=== PATIENT | female | born 1945 | race Caucasian/White ===

== ENCOUNTER 2019-05-12 23:38 | Inpatient (IN) ==
[2019-05-13 00:27] LABS: HEMATOCRIT 34.5 % (37.0-47.0); HEMOGLOBIN 10.9 g/dL (12.0-16.0); MCH 26.5 PG (27-31); MCHC 31.6 g/dL (33-37); MCV 83.9 FL (81-99); MPV 10.7 FL (7.4-10.4); PLT 307 X1000 (130-400); RBC 4.11 XMIL (4.2-5.4); RDW 13.9 % (11.5-14.5); WBC 7.59 X1000 (4.8-10.8)
[2019-05-13 00:28] LABS: BASO# 0.03 X1000 (0.0-0.2); BASO% 0.4 % (0.0-0.8); EOS# 0.26 X1000 (0.0-0.7); EOS% 3.4 % (0.0-10.0); IMM GRAN# 0.07 X1000 (0.0-0.04); IMM GRAN% 0.9 % (0.0-0.5); LYMPH# 1.82 X1000 (1.2-3.4); MONO# 1.49 X1000 (0.11-0.59); MONO% 19.6 % (1.7-9.3); NEUT# 3.92 X1000 (1.4-6.5); NEUT% 51.7 % (42.2-75.2)
--- NOTE | 2019-05-13 00:49 | PROVIDER DOCUMENTATION ---
This chart was entered by Sarah Hurley Scribe, acting as scribe for Mariana Cat MD. HPI-Abdominal Pain/GI Problem - General Chief Complaint: Diarrhea Stated Complaint: abd pain Time Seen by Provider: 05/12/19 23:50 Source: patient, EMS Allergies/Adverse Reactions: Patient Allergies Allergy/AdvReac Type Severity Reaction Status Date / Time Penicillins Allergy Severe RASH Verified 04/30/19 10:38 Sulfa (Sulfonamide Allergy Severe RASH Verified 04/30/19 10:38 Antibiotics) cephalexin [Cephalexin] Allergy Unknown Verified 04/30/19 10:38 levofloxacin [From Levaquin] Allergy Unknown Verified 04/30/19 10:38 seasonal Allergy Intermediate RUNNY NOSE Uncoded 04/30/19 10:38 Home Medications: Home Medication List Medication Instructions Recorded Confirmed Last Taken Type Divalproex Sodium 750 mg PO QHS 10/13/12 04/25/19 10/14/12 06:15 History Doxepin [Sinequan] 100 mg PO HS 10/13/12 04/25/19 10/13/12 23:30 History Aspirin 81 mg PO QHS 04/25/19 04/25/19 Unknown History Buspirone HCl 7.5 mg PO TID 04/25/19 04/25/19 Unknown History Cholecalciferol (Vitamin D3) 1,000 unit PO QHS 04/25/19 04/25/19 Unknown History [Vitamin D3] Clonazepam 0.5 mg PO TID 04/25/19 04/25/19 Unknown History Cyanocobalamin (Vitamin B-12) 1,000 mcg PO QHS 04/25/19 04/25/19 Unknown History [Vitamin B12] Duloxetine HCl 30 mg PO DAILY 04/25/19 04/25/19 Unknown History Rotigotine [Neupro] 2 ea TD DAILY 04/25/19 04/25/19 Unknown History Levothyroxine Sodium [Synthroid] 100 mcg PO DAILY #30 tab 04/26/19 Unknown Rx Hydrocodone/APAP 5 mg/325 mg 1 ea PO Q6H PRN PRN #20 tab 05/03/19 Unknown Rx [[place]-5] - History of Present Illness-ABD Nature of Presenting Problems: 73yof presents to ED by EMS cc 2 episodes of diarrhea today. Pt is scheduled to have surgery on her left ankle that is fracture in 2 days and just wanted to make sure Dr. Marie would still do it wiht her having diarrhea. Pt is a poor historian. Pt is nontoxic in appearance. Review of Systems - Adult - REVIEW OF SYSTEMS - ADULT Constitutional: reports: see HPI. denies: chills, fever, fatique Eyes: reports: no symptoms reported Ears, Nose, Mouth & Throat: reports: no symptoms reported Cardiovascular: reports: see HPI. denies: chest pain Respiratory: reports: see HPI. denies: cough, shortness of breath Gastrointestinal: reports: see HPI, diarrhea. denies: abdominal pain, nausea, vomiting Genitourinary: reports: no symptoms reported Musculoskeletal: reports: no symptoms reported Integumentary: reports: no symptoms reported Neurological: reports: no symptoms reported Psychiatric: reports: no symptoms reported Endocrine: reports: no symptoms reported Hematologic/Lymphatic: reports: no symptoms reported Allergic/Immunologic: reports: no symptoms reported All Other Systems: Reviewed and Negative Past History - Adult - PAST MEDICAL HISTORY-ADULT Review of Records: reports: Nursing Assessment Review, Medications Reviewed, Social history reviewed & non-contributory. Major Childhood Illnesses: reports: denies history Cardiovascular: reports: denies history Respiratory: reports: sleep apnea Gastrointestinal: reports: denies history Obstetrical/Gynecological: reports: denies history Genitourinary: reports: denies history Musculoskeletal: reports: denies history Neurological: reports: Parkinson's Endocrine/Immune: reports: thyroid disorder (hypo) Other Conditions: reports: denies history - PRIOR SURGERIES/PROCEDURES Surgical/Procedure History: reports: hysterectomy - IMMUNIZATION STATUS Childhood Immunizations: See Nurse Assessment Flu Vaccine: See Nurse Assessment - FAMILY HISTORY Family History: reviewed, not pertinent Physical Exam-General - PHYSICAL EXAM-ADULT Initial Vital Signs Reviewed: Yes - CONSTITUTIONAL General Appearance: appears well, alert, no apparent distress. negative: anxious, combative - EYES Eyes: PERRL/EOMI, pink conjunctivae. negative: meningismus, pale conjunctivae, photophobia - HEAD, EARS, NOSE, MOUTH & THROAT HENMT: normocephalic/atraumatic, moist mucous membranes, normal ENT inspection. negative: angioedema - NECK Neck: non-tender, full range of motion, supple, normal inspection. negative: C- spine tenderness - RESPIRATORY Respiratory: chest non-tender, lungs clear, normal breath sounds, no pleuratic chest pain, no respiratory distress, no accessory muscle use. negative: crackles, rales, rhonchi, stridor, wheezing - CARDIOVASCULAR Cardiovascular: normal peripheral pulses, regular rate, rhythm, no edema, no gallop, no JVD, no murmur. negative: bradycardia, tachycardia - GASTROINTESTINAL (ABDOMEN) Abdominal Exam: normal bowel sounds, non tender, soft, no organomegaly, no pulsatile mass. negative: distended, guarding, rigid, rebound, tenderness, hernia, mass - MUSCULOSKELETAL Extremity: deformity (cast on left lower leg/ankle/foot from a previous fractur e) - SKIN Integumentary: normal color, normal turgor, warm/dry. negative: cyanosis, diaphoresis, ecchymosis, jaundice, rash - NEUROLOGIC Neurologic: environmental officer II-XII nml as tested, grossly normal, no motor/sensory deficits. negative: facial droop, focal weakness, motor weakness, sensory deficit - PSYCHIATRIC Psych/Mental Status: normal mood/affect, normal thought content, normal thought process, oriented x 3. negative: disoriented x 3, anxious, disheveled, depressed affect Progress - PLAN OF CARE/RESULTS Progress/Plan/Lab Results: Vital Signs - 8 hr 05/13/19 00:00 Temperature 97.9 F Pulse Rate 81 Respiratory Rate 20 Blood Pressure 118/60 O2 Sat by Pulse Oximetry 97 Result Diagrams: 05/12/19 23:55 05/12/19 23:55 - CONSULTS/PCP/HOSPITALIST Notification #1 *Consult/PCP/Hospitalist*: Dr. Glass Time Discussed: 01:33 Consult Disposition: Will see in ED Departure - Departure Date of Disposition Decision: 05/13/19 Time of Disposition Decision: 01:30 DIAGNOSIS: Diarrhea, Altered mental status Disposition: ADMITTED INPATIENT 09 Certified Medical Emergency: Emergent Condition: Stable - Critical Care Note This patient required my direct & personal management of CC.: No Attestation - Physician/ SILVERIO Attestation Patient care was provided by Advanced Practice Provider:: No The physician spent face to face time with patient:: Yes Advanced Practice Provider documentation review:: Supervising physician onsite and consulted in the evaluation and care of this patient. The physician did have a face to face encounter with the patient. This chart was documented by the indicated jorgeibsteve, (Sarah Hurley, Scribe) and accurately reflects the services I performed and decisions made by me, Mariana Cat MD, as attested by the provider's signature.
[2019-05-13 01:21] LABS: ESTIMATED GFR > 60
[2019-05-13 01:24] LABS: AGAP 14; ALBUMIN 2.9 g/dL (3.5-5.0); ALKALINE PHOSPHATASE 64 U/L (32-104); AMYLASE 12 U/L (20-200); BUN 13 mg/dL (8-22); CALCIUM 8.6 mg/dL (8.8-10.2); CHLORIDE 102 mmol/L (98-107); COSMO 282; CREATININE 0.8 mg/dL (0.5-0.9); GLUCOSE 174 mg/dL (70-104); GOT 20 U/L (10-30); GPT 11 U/L (10-36); LIPASE 7 U/L (13-60); POTASSIUM 3.4 mmol/L (3.5-5.1); SODIUM 139 mmol/L (136-145); TCO2 23 mmol/L (25-35); TOTAL BILIRUBIN 0.19 mg/dL (0.20-1.00); TOTAL PROTEIN 5.8 g/dL (6.3-8.3)
[2019-05-13] MEDS ORDERED: ZOFRAN IV PRN (02:44)
[2019-05-13] MEDS: NS 1,000 ML IV SCH ×2 (04:14→16:21)
[2019-05-13] MEDS ORDERED: KLOR-CON PO ONE (06:20)
--- NOTE | 2019-05-13 07:35 | Diag Imaging Result Doc PS360 ---
EXAM: CHEST-PORTABLE 05/13/2019 HISTORY: AMS TECHNIQUE: AP portable at 1237 COMMENT: There is elevation of the left hemidiaphragm. There is some platelike opacity in the left base over the diaphragm and mild volume loss is present in the right upper lobe. These findings were also present on 04/24/2019 and are presumably chronic. IMPRESSION: Stable chest. Electronically signed by Ezequile Lauren 05/13/2019 7:32 AM
--- NOTE | 2019-05-13 08:04 | HISTORY AND PHYSICAL ---
CHIEF COMPLAINT: Diarrhea. HISTORY OF PRESENT ILLNESS: Ms. Elizondo is a 73-year-old female who came into the emergency room because she had 2 bouts of diarrhea. She is supposed to have surgery on her left lower extremity and she came into the emergency room wanting to make sure that Dr. Marie would still do the surgery with her having diarrhea. She will be admitted on Observation status for further evaluation. PAST MEDICAL HISTORY: 1. Falls. 2. Sleep apnea. 3. Parkinson's. 4. Hypothyroidism. 5. Recent fracture of left ankle. PREVIOUS SURGICAL HISTORY: Hysterectomy. FAMILY HISTORY: Positive for Parkinson's disease. SOCIAL HISTORY: No tobacco, occasional alcohol, no drugs. Lives alone. ALLERGIES: Penicillin, sulfa, Keflex, Levaquin. She also has seasonal allergies. HOME MEDICATIONS: List has not been reconciled. Order was placed for nursing to reconcile home medications. The patient was somewhat lethargic. They will call the pharmacy this morning. These can be restarted when appropriate. REVIEW OF SYSTEMS: Fourteen point review of systems conducted with the patient. Pertinent positives listed above in HPI. All other systems reviewed and found to be negative. PHYSICAL EXAMINATION: VITAL SIGNS: Temp 97.9 degrees, pulse 81, respirations 20, blood pressure 118/60, oxygen saturation 97% on room air. GENERAL: 73-year-old female somewhat lethargic. She is alert and oriented. Answers questions but then falls back asleep. HEENT: Head is atraumatic, normocephalic. Pupils equal, round and react to light. Extraocular eye movements intact. Sclerae anicteric. Conjunctivae pink. Oral mucosa is moist. NECK: Supple. No JVD. No thyromegaly. Trachea is midline. No cervical lymphadenopathy. CARDIAC: S1, S2 appreciated. No murmurs, gallops, rubs. LUNGS: Clear to auscultation bilaterally. No rhonchi, wheezes, rales. Symmetric rise and fall of respirations. ABDOMEN: Soft, nondistended, nontender. Bowel sounds present in all 4 quadrants. Normoactive. No pulsatile mass. No organomegaly. EXTREMITIES: 1+ pitting edema right lower extremity. Left lower extremity is in a cast. 1+ pedal pulse in right lower extremity. NEUROLOGICAL: Lethargic but oriented x3. No focal motor deficits. Otherwise nonfocal examination. DIAGNOSTIC DATA: Chest x-ray, no infiltrates or effusions. LABORATORY DATA: WBC 7.59, Hemoglobin 10.9, hematocrit 35.4, platelet count 307,000. Sodium 139, potassium 3.4, chloride 102, carbon dioxide 23, BUN 13, creatinine 0.8, glucose 174. ASSESSMENT AND PLAN: 1. Diarrhea with mild weakness. We will give fluids at 75 mL an hour. Check stool studies. 2. Parkinson's, aware. We will continue home medications when reconciled. 3. Hypothyroidism. Check TSH level. Continue Synthroid when dosing is available. 4. Hypokalemia. We will give potassium and recheck. 5. Hyperglycemia. Check hemoglobin A1c. As far as I know, she does not have diabetes mellitus. Further recommendations based on patient's clinical course. Dictated by DANA Alas for Reza Glass MD I have performed a face to face diagnostic evaluation. Labs/ xrays- reviewed. Exam- Chest- clear, CV-regular, Abd- soft. A/P- Diarrhea- Admit, supportive care, stool studies. Dr. Glass cc: DANA Alsa MD Diana Wilhite, [facility]
--- NOTE | 2019-05-13 17:52 | PROGRESS NOTE ---
DATE: 05/13/2019 SUBJECTIVE: Today Ms. Elizondo refers to be doing a little better. I understand they brought her because she was having a lot of diarrhea. Ms. Elizondo seems to have some baseline dementia. She is not able to give a very articulate story. OBJECTIVE: Vital signs: Blood pressure is 137/45, pulse of 80, respirations 19, temperature is 98.0 degrees. Patient is saturating 97% on room air. General: Ms. Elizondo is a 73-year-old female. She is in bed. No distress. HEENT: Mucosa is pink and moist. Anicteric. Acyanotic. Neck: Supple. Chest: Clear to auscultation. Cardiovascular: Regular rate and rhythm. Abdomen: Soft. Minimally distended. Extremities: The left lower extremity is in an orthopedic boot. STAFF AUDITOR: Patient is awake, alert, follows some conversations and follows commands, but she seems to have baseline cognitive decline. LABORATORY DATA: Has been reviewed. The patient has borderline normocytic anemia. Chemistries show potassium of 3.4. TSH of 8.62. ASSESSMENT: 1. Generalized weakness, most likely due to underlying dehydration. 2. Diarrhea on presentation, resolved. 3. Hypothyroidism. Will continue with levothyroxine. 4. Hypokalemia. 5. History of Parkinson. 6. Suspected underlying dementia. 7. Left distal fibular shaft fracture. The patient is currently in an orthopedic boot. There is a plan for intervention tomorrow. cc: Naeem Dias MD
[2019-05-14] MEDS: NS 1,000 ML IV SCH ×2 (05:23→20:14)
[2019-05-14 10:18] LABS: AGAP 12; BUN 11 mg/dL (8-22); CALCIUM 8.7 mg/dL (8.8-10.2); CHLORIDE 103 mmol/L (98-107); COSMO 280; CREATININE 0.8 mg/dL (0.5-0.9); ESTIMATED GFR > 60; GLUCOSE 116 mg/dL (70-104); SODIUM 140 mmol/L (136-145); TCO2 25 mmol/L (25-35)
--- NOTE | 2019-05-14 12:30 | ORTHOPAEDICS CONSULTATION ---
DATE: 05/14/2019 CHIEF COMPLAINT: Left ankle fracture. HISTORY OF PRESENT ILLNESS: Ms Elizondo is a 73-year-old female, she was admitted last night per the Medicine Service with some diarrhea. She was admitted to observation. She is feeling better today. She does still complain of pain down on the left ankle. I saw her in clinic recently and discussed with her about operative intervention today for this unstable ankle fracture. PAST MEDICAL HISTORY: Parkinson's, hypothyroidism. PAST SURGICAL HISTORY: Hysterectomy. FAMILY HISTORY: Positive for Parkinson disease. SOCIAL HISTORY: She denies any tobacco or alcohol use. ALLERGIES: Allergies are to penicillin, sulfa, Keflex and Levaquin. HOME MEDICATIONS: Per the medical record. REVIEW OF SYSTEMS: Positive for left ankle pain. All other systems are essentially negative. PHYSICAL EXAMINATION: General: A well-developed female. She is in no acute distress, lying in the hospital bed. Head and Neck: Normocephalic, atraumatic. Respirations: Nonlabored breathing. Cardiovascular: Regular pulse. Abdomen: Nondistended. Left lower extremity: Cast is clean, dry and intact. She is able to move the toes. She has good capillary refill to the toes. Do not see any skin ulcerations or abrasions anywhere. ASSESSMENT: Left bimalleolar ankle fracture. PLAN: We will plan on open reduction and internal fixation today. She is n.p.o. Everything is set for surgery. I had already gone over the risks and benefits with her in the office and she did not have any questions this morning about them. cc: Dakota Marie MD
[2019-05-14] MEDS ORDERED: KEFZOL 2 GM/D5W 2 GM/50 ML IVPB ONE (16:23)
--- NOTE | 2019-05-14 16:48 | PROGRESS NOTE ---
DATE: 05/14/2019 SUBJECTIVE: This morning Ms. Elizondo refers to be doing a whole lot better. She was more alert and more engaging than yesterday. OBJECTIVE: Vital signs: Blood pressure is 135/49, pulse of 87, respirations 20, temperature 97.9 degrees. General: Ms. Elizondo is a 73-year-old female. She is in bed. No distress. HEENT: Mucosa is pink, slightly dry. Anicteric. Acyanotic. Neck: Supple. Chest: Clear to auscultation. Cardiovascular: Regular rate and rhythm. GI: Abdomen is soft. Bowel sounds present. Extremities: Left lower extremity is in an orthopedic boot. CRITICAL CARE NURSE: Patient is awake, alert. LABORATORY DATA: Has been reviewed. Chemistry is completely normal. ASSESSMENT: 1. Diarrhea on presentation, resolved. 2. Generalized weakness. Likely due to underlying dehydration, improved. 3. Hypothyroidism. Patient is on levothyroxine. 4. History of Parkinson disease, noted. The patient is on Rotigotine patch. 5. Suspected underlying dementia. 6. Left distal fibular shaft fracture. Patient is pending intervention this afternoon. PLAN: So in general, I think Ms. Elizondo is doing a whole lot better. We are going to continue with the gentle fluids, pain management, and get social work to start working on possible rehab placement after the surgery. cc: Naeem Dias MD
[2019-05-14] MEDS ORDERED: SENOKOT PO PRN (17:40)
[2019-05-14] MEDS ORDERED: ZOFRAN IV PRN (17:40)
[2019-05-14] MEDS ORDERED: XYLOCAINE-MPF 2% ONE (17:43)
[2019-05-14] MEDS ORDERED: NAROPIN 0.5% INJ ONE (17:45)
[2019-05-14] MEDS ORDERED: NS 0 ML ONE (19:01)
--- NOTE | 2019-05-14 21:24 | OPERATIVE NOTE ---
PROCEDURE DATE: 05/14/2019 PREOPERATIVE DIAGNOSIS: Left bimalleolar ankle fracture. POSTOPERATIVE DIAGNOSIS: Left bimalleolar ankle fracture. PROCEDURE: Left open reduction and internal fixation, bimalleolar ankle fracture. SURGEON: Dakota Marie MD MANAGER CLUB: DANA Knox, who was an integral part of the case, helping with all aspects of the case, helping to increase our OR efficiency greatly. ANESTHESIA: General with LMA. TOURNIQUET TIME: Less than an hour. IMPLANTS: [id number] lateral locking plate and screws, and 4.0 cannulated screws. DISPOSITION: To PACU, hemodynamically stable. INDICATION FOR PROCEDURE: Ms. Elizondo is a 73-year-old female who my partner was seeing for an ankle fracture. It looked like things were starting to displace some, so he sent her over to me for possible surgical consideration. We discussed everything. She wished to proceed with surgery. DESCRIPTION OF PROCEDURE: Ms. Elizondo was identified in the preoperative holding area. The left ankle was marked as the correct surgical site. She was then wheeled to the operating room and placed supine on the operating table, all bony prominences well padded. She was induced under general anesthesia. LMA was placed. Tourniquet was placed to the left thigh. The left lower extremity was then prepped with chlorhexidine gluconate scrub and then ChloraPrep, and draped in normal sterile fashion. A surgical pause was performed. We identified the correct patient, correct site and the correct procedure. Preoperative antibiotics were given. Esmarch was used to exsanguinate the left lower extremity and tourniquet was inflated to 300 mmHg. I started with a longitudinal incision over the distal fibula. Dissection was carried down all the way to bone. We identified our fracture fairly easily, which was a short oblique. I used a pointed reduction clamp. I got a good reduction there. Bone quality on that distal fragment was not great, and since it was very short oblique I did not think a lag screw would hold very well, so we ended up going with a locking plate. I temporarily pinned it in place and then used an anatomic locking plate laterally, with locking screws distal and cortical screws proximally. The fracture came together really well. The joint looked really good as well. I then came medially. I made an incision. I came down the fracture site. I got all the periosteum out that was in the fracture site, anatomically reduced it and then I put two 4.0 cannulated screws up that medial side. Final images were taken, which showed that we had good reduction of the fractures, good reduction of the ankle joint. External rotation stress test did not cause any medial clear space widening or syndesmotic widening. We then closed everything in a layered fashion with 0 Vicryl for the deep layer, 2-0 Vicryl for the subcutaneous and nylon on the skin. Adaptic, 4 x 4s, ABD, Sof-Rol and posterior splint were applied. The tourniquet was let down. The patient had good capillary refill return to the toes. She was then awoken from general anesthesia, moved to her own bed and taken to PACU in stable condition. PLAN: Postoperatively she will be nonweightbearing on the left lower extremity, and I will see her in about a week in clinic. cc: Dakota Marie MD
[2019-05-15] MEDS: TYLENOL PO PRN ×2 (00:44→09:09)
[2019-05-15] MEDS: LOVENOX SUBQ SCH (05:13)
[2019-05-15 08:10] LABS: HEMATOCRIT 34.9 % (37.0-47.0); MCH 26.8 PG (27-31); MCHC 31.5 g/dL (33-37); MCV 85.1 FL (81-99); MPV 10.1 FL (7.4-10.4); RBC 4.1 XMIL (4.2-5.4); RDW 13.7 % (11.5-14.5); WBC 10.63 X1000 (4.8-10.8)
[2019-05-15 08:36] LABS: AGAP 12; ALBUMIN 2.8 g/dL (3.5-5.0); BUN 9 mg/dL (8-22); CALCIUM 8.9 mg/dL (8.8-10.2); CHLORIDE 101 mmol/L (98-107); COSMO 273; CREATININE 0.6 mg/dL (0.5-0.9); ESTIMATED GFR > 60; GLUCOSE 110 mg/dL (70-104); PHOSPHORUS 3.5 mg/dL (2.7-4.5); POTASSIUM 3.7 mmol/L (3.5-5.1); SODIUM 137 mmol/L (136-145); TCO2 24 mmol/L (25-35)
[2019-05-15] MEDS: KEFZOL 1 GM/D5W 1 GM/50 ML IVPB IV SCH ×4 (11:05→18:35)
[2019-05-15] MEDS: NS 1,000 ML IV SCH (11:06)
[2019-05-15] MEDS: OXY IR PO PRN ×2 (14:04→20:01)
[2019-05-15] MEDS: MORPHINE IV PRN (21:21)
[2019-05-16] MEDS: KEFZOL 1 GM/D5W 1 GM/50 ML IVPB IV SCH (01:03)
[2019-05-16] MEDS: NS 1,000 ML IV SCH ×2 (01:03→15:00)
[2019-05-16] MEDS: LOVENOX SUBQ SCH (06:25)
[2019-05-16] MEDS: OXY IR PO PRN ×2 (06:25→21:50)
[2019-05-16] MEDS ORDERED: ROTIGOTINE TOP SCH (09:00)
--- NOTE | 2019-05-16 10:24 | PROGRESS NOTE ---
DATE: 05/16/2019 SUBJECTIVE: This morning Ms. Elizondo refers to be doing okay. She was kind of concerned about who is taking care of her pets at home. OBJECTIVE: Vital signs: Blood pressure is 122/46, pulse of 76, respirations 16, temperature 98.2 degrees. The patient is saturating 95% on room air. General: Ms. Elizondo is a 73-year-old elderly female. She is in bed in no distress. HEENT: Mucosa is pink and moist. Anicteric. Acyanotic. Neck: Supple. Chest: Good air entry bilaterally. No crepitations. No rhonchi. Cardiovascular: Regular rate and rhythm. No murmurs, no rubs, no gallops. GI: Abdomen is soft, nontender. Bowel sounds present. Extremities: No pedal edema. Left lower extremity is in orthopedic boots. PARTY SUPPLY SPECIALIST: Patient is awake, alert, oriented. Follows basic commands. LABORATORY DATA: None for this morning. ASSESSMENT: 1. Diarrhea on presentation, improved. 2. Altered mental status, likely due to toxic metabolic encephalopathy. Mentation has significantly improved. 3. Generalized weakness due to underlying dehydration, improved. 4. Hypothyroidism. Will continue with supplement. 5. History of Parkinson disease. The patient is on Rotigotine patch. 6. Alzheimer dementia. 7. Left distal fibular shaft fracture status post open reduction, internal fixation by Dr. Marie. Today is day 2 postoperatively. General plan is pending a rehabilitation placement for Ms. Elizondo. cc: Naeem Dias MD [facility]
[2019-05-16] MEDS: BUSPAR PO SCH ×3 (11:28→21:21)
[2019-05-16] MEDS: CYMBALTA PO SCH (11:28)
[2019-05-16] MEDS: KLONOPIN PO SCH ×4 (11:28→21:21)
[2019-05-16] MEDS: SYNTHROID PO SCH (11:28)
--- NOTE | 2019-05-16 15:31 | ORTHOPAEDICS PROGRESS NOTE ---
DATE: 05/16/2019 SUBJECTIVE: Lynette Elizondo is a 73-year-old female status post a left bimalleolar ankle fracture ORIF on 05/14/2019. She has no complaints. OBJECTIVE: She is a well-developed, well-nourished female. She is alert and oriented, and cooperative with exam. Her cast is intact. She can flex and extend her toes. She has brisk capillary refill and intact sensation to light touch. IMPRESSION: Stable left bimalleolar ankle fracture, open reduction internal fixation. PLAN: We will continue physical therapy nonweightbearing left lower extremity. She can be transferred to rehab when cleared medically and a bed is available. cc: Abel Jaime MD
[2019-05-16] MEDS: DEPAKOTE PO SCH (21:20)
[2019-05-16] MEDS: VITAMIN B-12 PO SCH (21:21)
[2019-05-16] MEDS: SINEQUAN PO SCH (21:21)
[2019-05-16] MEDS: VITAMIN D PO SCH (21:21)
[2019-05-16] MEDS: ASPIRIN PO SCH (21:22)
[2019-05-17] MEDS: NS 1,000 ML IV SCH ×2 (04:31→16:45)
[2019-05-17] MEDS: LOVENOX SUBQ SCH (06:19)
[2019-05-17] MEDS: SYNTHROID PO SCH (06:19)
[2019-05-17 07:00] LABS: HEMATOCRIT 31.7 % (37.0-47.0); HEMOGLOBIN 9.9 g/dL (12.0-16.0); MCH 26.1 PG (27-31); MCHC 31.2 g/dL (33-37); MCV 83.6 FL (81-99); MPV 10.2 FL (7.4-10.4); RBC 3.79 XMIL (4.2-5.4); RDW 13.6 % (11.5-14.5); WBC 9.86 X1000 (4.8-10.8)
[2019-05-17 07:17] LABS: AGAP 10; ALBUMIN 2.6 g/dL (3.5-5.0); BUN 9 mg/dL (8-22); CALCIUM 8.5 mg/dL (8.8-10.2); CHLORIDE 107 mmol/L (98-107); COSMO 282; CREATININE 0.7 mg/dL (0.5-0.9); ESTIMATED GFR > 60; GLUCOSE 110 mg/dL (70-104); PHOSPHORUS 3.4 mg/dL (2.7-4.5); POTASSIUM 3.6 mmol/L (3.5-5.1); SODIUM 142 mmol/L (136-145); TCO2 25 mmol/L (25-35)
--- NOTE | 2019-05-17 10:42 | ORTHOPAEDICS PROGRESS NOTE ---
DATE: 05/17/2019 SUBJECTIVE: Lynette Elizondo is a 73-year-old female who is postoperative day 3 from a left bimalleolar ankle fracture ORIF by Dr. Marie. She has no complaints. OBJECTIVE: She is a well-developed, well-nourished female. She is alert and cooperative with the exam. Her splint is intact. She can flex and extend her toes. She has brisk capillary refill and intact sensation to light touch. Her hemoglobin is 9.9, her hematocrit is 31.7. She has made minimal progress with physical therapy. ASSESSMENT: Stable left ankle fracture open reduction and internal fixation. PLAN: Continue working with physical therapy. She will likely go to rehab first part of the week. Dr. Marie will be back to see her tomorrow in followup. cc: Abel Jaime MD
[2019-05-17] MEDS: BUSPAR PO SCH ×3 (11:31→20:11)
[2019-05-17] MEDS: KLONOPIN PO SCH ×4 (11:32→20:11)
[2019-05-17] MEDS: CYMBALTA PO SCH (11:32)
--- NOTE | 2019-05-17 13:22 | PROGRESS NOTE ---
DATE: 05/17/2019 SUBJECTIVE: This morning Ms. Elizondo referred to be doing okay. There was a female friend was at the bedside at the time of the encounter. OBJECTIVE: Vital signs: Blood pressure is 126/53, pulse of 79, respirations 20, temperature 98.3 degrees, patient was saturating 97% on room air. General: Ms. Elizondo is a 73-year-old female. She is in bed, no distress. Mucosa is pink and moist. Anicteric. Acyanotic. Neck: Supple. Chest: Good air entry bilateral. There were no crepitations, no rhonchi. Cardiovascular: Regular rate and rhythm. No murmurs, no rubs, no gallops. GI: Abdomen was soft, nontender. Bowel sounds present. Extremities: Left lower extremity is in an orthopedic boot. The patient is able to move the toes and they look pink with neurovascular intact. ECHO TECHNOLOGIST: Patient follows basic commands. LABORATORY DATA: CBC is reviewed. Patient has mild normocytic anemia. Chemistry is completely normal. ASSESSMENT: 1. Altered mental status on presentation secondary to toxic metabolic encephalopathy. Mentation has improved. 2. Diarrhea on presentation associated with clinical volume depletion, improved. 3. Hypothyroidism, stable. 4. History of Parkinson disease. The patient has been started back on her home medications. 5. Alzheimer's dementia. 6. Left distal fibular shaft fracture status post ORIF by Dr. Marie. Today is day 3 postop. Patient seems to be doing fairly okay, was evaluated by physical therapy yesterday. cc: Naeem Dias MD
[2019-05-17] MEDS: OXY IR PO PRN (16:50)
[2019-05-17] MEDS: MORPHINE IV PRN ×2 (18:28→20:42)
[2019-05-17] MEDS: VITAMIN D PO SCH (20:10)
[2019-05-17] MEDS: SINEQUAN PO SCH (20:10)
[2019-05-17] MEDS: DEPAKOTE PO SCH (20:10)
[2019-05-17] MEDS: VITAMIN B-12 PO SCH (20:12)
[2019-05-17] MEDS: ASPIRIN PO SCH (20:14)
[2019-05-18] MEDS: NS 1,000 ML IV SCH ×2 (02:44→15:40)
[2019-05-18] MEDS: SYNTHROID PO SCH (06:10)
[2019-05-18] MEDS: LOVENOX SUBQ SCH (06:10)
[2019-05-18] MEDS: CYMBALTA PO SCH (09:39)
[2019-05-18] MEDS: BUSPAR PO SCH ×2 (09:40→15:41)
[2019-05-18] MEDS: KLONOPIN PO SCH ×3 (09:40→17:05)
[2019-05-18] MEDS: OXY IR PO PRN ×2 (09:49→17:03)
[2019-05-18] MEDS ORDERED: MIRALAX PO SCH (11:00)
[2019-05-18] MEDS: MORPHINE IV PRN (13:36)
--- NOTE | 2019-05-18 14:19 | DISCHARGE SUMMARY ---
ADMISSION DATE: 05/14/2019 DISCHARGE DATE: 05/18/2019 DISPOSITION: [facility]. FOLLOW-UP: Dakota Marie MD, Gabby Valadez NP CONSULTATION DURING THIS ADMISSION: orthopedics was consulted. Patient was seen by Dr. Marie. INVASIVE PROCEDURES DONE DURING THIS ADMISSION: Left open reduction and internal fixation of bimalleolar ankle fracture. ADMISSION DIAGNOSES: 1. Diarrhea with mild weakness. 2. Parkinson disease. 3. Hypothyroidism. DIAGNOSES AT THE TIME OF DISCHARGE: 1. Altered mental status on presentation secondary to toxic metabolic encephalopathy. Mentation improved during the hospital course. 2. Diarrhea on presentation, associated with clinical volume depletion, improved. 3. Hypothyroidism, stable. 4. History of Parkinson disease. 5. Alzheimer dementia. 6. Left distal fibula shaft fracture status post open reduction, internal fixation by Dr. Marie. DISCHARGE MEDICATIONS: 1. Doxepin 100 mg p.o. at bedtime. 2. Divalproex sodium 250 p.o. at bedtime. 3. Aspirin 81 mg p.o. at bedtime. 4. Buspirone 7.5 three times per day. 5. Vitamin D. 6. Klonopin 0.5 p.o. q.4 h. 7. Duloxetine 30 mg p.o. daily. 8. Rotigotine 18 patch. 9. Synthroid 100 mcg p.o. daily. 10. Oxycodone 5 mg p.o. q.3 h. 11. Senokot 1 tablet b.i.d. PRESENTING COMPLAINT: Diarrhea. HISTORY OF PRESENTING COMPLAINT: Ms Elizondo is a 73-year-old female, who presented to the emergency department because of diarrhea which has been associated with remarkable dehydration and altered mental status. She had had an accidental fall with a broken left lower extremity, which had already been placed in cast and was pending orthopedic intervention. She was subsequently admitted to control the ongoing diarrhea and dehydration and also have had her fracture taken care of. HOSPITAL COURSE: Ms Elizondo was admitted to the medical floor. She was adequately fluid resuscitated. Diarrhea improved. She had actually did not have any throughout the hospital course. We think most of her altered mental status was as a result of too much psychotropic medications on the background of remarkable dehydration. During the hospital course, her mentation completely resolved. We did restart her on her home medication. She tolerated it well during the hospital course. Orthopedics was consulted. The patient was seen by Dr. Marie. Intervention was done on her left lower extremity. Physical Therapy has also been consulted. Patient has been seen twice. This morning, we think she is fairly stable for rehabilitation if it is okay with Orthopedics. HER CURRENT VITALS: Blood pressure is 129/67, pulse of 82, respiration is 21, temperature is 97.9 degrees. PHYSICAL EXAMINATION: Unchanged. COORDINATION TIME: Time spent for discharge is 37 minutes. DISPOSITION: Ms Elizondo will be discharged to rehabilitation if it is okay with Orthopedics today. cc: Naeem Dias MD MTDD
[2019-05-18 15:52] VITALS: BP 128/43
== END 2019-05-18 17:43 | DRG 981 ==
LOC: SUPCPDRO → 3N 23:38 → ED 23:38 → SUATTDRO 05-13 01:54
PROVIDERS: ATTEND Internal Medicine